=== PATIENT | male | born 1985 | race Two or more races ===

== ENCOUNTER 2020-05-07 15:06 | Emergency (ER) | payer MEDICAID ==
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
[2020-05-07] MEDS ORDERED: SULFAMETH./TRIMETHOPRIM DS 800MG/160MG TABLET PO ONE (16:30)
[2020-05-07] MEDS ORDERED: HALOPERIDOL 5 MG/ML IM PRN (16:30)
[2020-05-07] MEDS ORDERED: LORazepam 2 MG/ML, 1ML IM PRN (16:30)
[2020-05-07] MEDS ORDERED: CEPHALEXIN 500 MG CAPSULE PO ONE (16:30)
[2020-05-07] MEDS ORDERED: OLANZAPINE 10 MG TABLET PO ONE (16:30)
[2020-05-07] MEDS ORDERED: HYDROXYZINE PAMOATE 50MG CAP PO PRN (16:30)
[2020-05-07 16:40] LABS: AMPHETAMINE SCREEN, URINE Positive (Negative); BARBITURATE SCREEN, URINE Negative (Negative); BENZODIAZEPINE SCREEN, URINE Negative (Negative); CANNABINOID SCREEN, URINE Negative (Negative); COCAINE SCREEN, URINE Negative (Negative); METHADONE SCREEN, URINE Negative (Negative); OPIATE SCREEN, URINE Negative (Negative)
[2020-05-07 16:42] LABS: BASOPHILS % (AUTO) 0 % (0-1); EOSINOPHILS % (AUTO) 1 % (1-7); LYMPHOCYTES % (AUTO) 18 % (22-44); MEAN CORPUSCULAR HEMOGLOBIN 30.1 pg (27.5-34.5); MEAN PLATELET VOLUME 8.2 fL (7.4-10.4); MONOCYTES % (AUTO) 7 % (2-9); NEUTROPHILS % (AUTO) 74 % (42-75); PLATELET COUNT 363 x10^3/uL (130-400); RED BLOOD COUNT 4.95 x10^6/uL (4.38-5.82); RED CELL DISTRIBUTION WIDTH 13.7 % (9.4-14.8)
[2020-05-07 16:49] LABS: MD NO
[2020-05-07 16:51] LABS: ANION GAP 6 mmol/L (5-15); CALCIUM 9.6 mg/dL (8.5-10.1); CHLORIDE 105 mmol/L (98-107)
[2020-05-07 16:52] LABS: SALICYLATE LEVEL < 1.7 mg/dL (2.8-20.0)
[2020-05-07 16:53] LABS: ALANINE AMINOTRANSFERASE 50 U/L (12-78); ALKALINE PHOSPHATASE 97 U/L (45-117); BILIRUBIN,TOTAL 0.6 mg/dL (0.2-1.0); CREATININE 0.84 mg/dL (0.7-1.3); TOTAL PROTEIN 7.7 g/dL (6.4-8.2)
[2020-05-07] MEDS ORDERED: CEPHALEXIN 500 MG CAPSULE ONE (17:06)
[2020-05-07] MEDS ORDERED: SULFAMETH./TRIMETHOPRIM DS 800MG/160MG TABLET ONE (17:06)
[2020-05-07] MEDS ORDERED: OLANZAPINE 10 MG TABLET ONE (17:06)
--- NOTE | 2020-05-07 17:14 | NUR ---
REAL ESTATE LAWYER IN TO EVAL PT, PT IS NOW LEGAL HOLD. ADDITIONAL ORDERS RECIEVED. PT MEDICATED PER SEP. MEAL TRAY ORDERED
--- NOTE | 2020-05-07 17:20 | NUR ---
DIET TRAY ORDERED
--- NOTE | 2020-05-07 17:48 | NUR ---
PT MOVED TO RM 1 FOR COMFORT, WARM BLANKET PROVIDED
--- NOTE | 2020-05-07 18:00 | NUR ---
DEBORAH DEMPSEY STARTED, PT REPORTED HE DOS HAVE MORE MEDS HE TAKES AT HOME WILL LOOK AT RECORDES FROM [facility] AND WILL UPDATE
--- NOTE | 2020-05-07 18:13 | NUR ---
report received from jessica byrne.
--- NOTE | 2020-05-07 18:57 | NUR ---
REPORT GIVEN TO GOVIND TRAN.
--- NOTE | 2020-05-07 19:03 | NUR ---
REPORT FROM CHELSEA CONWAY. PT SLEEPING, RR EQUAL AND UNLABORD. SITTER OUTSIDE ROOM. SAFETY CHECKS UPDATED. WILL CONTINUE TO MONITOR, NEEDS MET.
--- NOTE | 2020-05-07 20:23 | NUR ---
NO CHANGE IN ASSESSMENT, PT STILL SLEEPING, RR EQUAL AND UNLABORED. SITTER OUTSIDE OF ROOM IN LINE OF SITE. WILL CONTINUE TO MONITOR.
[2020-05-07] MEDS ORDERED: OLANZAPINE 5 MG TABLET ONE (20:30)
--- NOTE | 2020-05-07 20:38 | NUR ---
WAKES UP WITH VERBAL COMM, ALL NEEDS MET, TOILET/FOOD/MEDS PER MAR. REMAINS CALM, COOPERATIVE. SITTER IN LINE OF SITE. WILL CONTINUE TO MONITOR.
--- NOTE | 2020-05-07 21:47 | NUR ---
PT SLEEPING, RR EQUAL AND UNLABORED. SITTER IN LINE OF SITE, ALL NEEDS MET. WILL CONTINUE TO MONITOR.
--- NOTE | 2020-05-07 22:45 | NUR ---
pt sleeping, rr equal and unlabored. sitter in line of site. will continue to monitor.
--- NOTE | 2020-05-08 00:05 | NUR ---
SLEEPING, RR EQUAL AND UNLABORED. SITTER IN LINE OF SITE. WILL CONTINUE TO MONITOR.
--- NOTE | 2020-05-08 00:40 | NUR ---
TASK RN: PT SLEEPING IN [facility] AT THIS TIME WITH SITTER OUTSIDE OF ROOM FOR DIRECT OBSERVATION OF PT.
--- NOTE | 2020-05-08 02:53 | NUR ---
Snacks provided, water, toilet. Pt is calm, cooperative. Sitter in line of site. Will continue to monitor.
--- NOTE | 2020-05-08 03:38 | NUR ---
OFFERED HOSPITAL BED, PT REFUSED.
--- NOTE | 2020-05-08 04:46 | NUR ---
PT SLEEPING, RR EQUAL AND UNLABORED. SITTER IN LINE OF SITE, WILL CONTINUE TO MONITOR.
--- NOTE | 2020-05-08 06:51 | NUR ---
report to chavez tyler
--- NOTE | 2020-05-08 06:52 | NUR ---
RECEIVED REPORT FROM CHELSEA FAUST. PT. RESTING ON GURNEY RIGHT SIDE LYING WITH EYES CLOSED. REPIRATIONS VISIBLE AND NON-LABORED. ROOM SECURED, SITTER IN LEE.
--- NOTE | 2020-05-08 07:47 | NUR ---
PT. RESTING ON GURNEY IN SUPINE POSITION. RESPIRATIONS VISIBLE AND NON-LABORED. ROOM REMAINS SECURED. SITTER IN LEE.
--- NOTE | 2020-05-08 08:24 | NUR ---
MEAL TRAY PROVIDED TO PT. PT. DENIES OTHER NEEDS AT THIS TIME. PT. IS REFUSING HOSPITAL BED. STATES "NO, I AM GOOD ON THIS BED, I DON'T WANT A DIFFERENT ONE." DENIES OTHER NEEDS AT THIS TIME. NO DISTRESS NOTED. SITTER IN VIEW.
[2020-05-08 08:35] VITALS: BP 144/89
--- NOTE | 2020-05-08 08:35 | NUR ---
PT. ATE 100% OF BREAKFAST TRAY. VS UPDATED. DENIES OTHER NEEDS.
--- NOTE | 2020-05-08 08:53 | NUR ---
REPORT TO CHELSEA ALEXANDER.
[2020-05-08] MEDS ORDERED: OLANZAPINE 5 MG TABLET PO SCH (09:00)
--- NOTE | 2020-05-08 09:07 | NUR ---
REPORT RECEIVED FROM CHELSEA CORDOVA. [facility].
--- NOTE | 2020-05-08 12:38 | NUR ---
PT PROVIDED WITH MEAL TRAY
== END 2020-05-08 13:35 | disposition home or self-care (01) ==
LOC: ED 18:26
DX: S71.112A Laceration without foreign body, left thigh, initial encounter (principal); R45.851 Suicidal ideations; F23 Brief psychotic disorder; X58.XXXA Exposure to other specified factors, initial encounter; Y93.89 Activity, other specified; Y92.89 Other specified places as the place of occurrence of the external cause; Y99.8 Other external cause status
CPT/HCPCS: 36415; 80053; 80307; 85025; 99284

== ENCOUNTER 2020-05-10 19:22 | Emergency (ER) | payer MEDICAID ==
[~2020-05-10] VITALS: Ht 180.3 cm; Wt 90.2 kg
[2020-05-10 19:26] VITALS: BP 166/120
--- NOTE | 2020-05-10 19:59 | NUR ---
ER PROVIDER AT BEDSIDE FOR EVALUATION.
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
[2020-05-10] MEDS ORDERED: NEOSPORIN OINT. PKT 1 PACKET ONE (20:17)
--- NOTE | 2020-05-10 20:26 | NUR ---
Patient given discharge instructions and prescription and they have confirmed that they understand the instructions. Patient ambulatory with steady gait to discharge desk,.
== END 2020-05-10 20:27 | disposition home or self-care (01) ==
LOC: ED 20:03
DX: S71.112A Laceration without foreign body, left thigh, initial encounter (principal); R00.0 Tachycardia, unspecified; X58.XXXA Exposure to other specified factors, initial encounter; Y93.89 Activity, other specified; Y92.89 Other specified places as the place of occurrence of the external cause; Y99.8 Other external cause status
CPT/HCPCS: 93005; 99283

== ENCOUNTER 2020-05-11 14:29 | Emergency (ER) | payer MEDICAID ==
[~2020-05-11] VITALS: Ht 180.3 cm; Wt 86.5 kg
--- NOTE | 2020-05-11 14:46 | NUR ---
PT BROUGHT IN FROM [facility]. PT STATES "I NEED TO LEAVE [place]" STATES "EVERYTIME I GET ON THE [facility] BUS, THEY FOLLOW ME." STATES HE HASN'T TAKEN HIS MEDS (REMERON, ABILIFY, VISTARIL, WELLBUTIN) "SINCE THE LAST TIME I WAS AT THE HOSPITAL"
[2020-05-11] MEDS ORDERED: LORazepam 1MG TABLET PO ONE (15:00)
[2020-05-11] MEDS ORDERED: LORazepam 1MG TABLET ONE (15:10)
--- NOTE | 2020-05-11 15:13 | NUR ---
ATIVAN GIVEN PER EMAR. PT SITTING QUIETLY ON GURNEY.
--- NOTE | 2020-05-11 15:44 | NUR ---
PER DR NICHOLS, SOCIAL WORK CONSULT TO BE ORDERED.
[2020-05-11 15:54] VITALS: BP 168/122
--- NOTE | 2020-05-11 16:14 | NUR ---
PIPPA, WORSTED WINDER, AT BS.
--- NOTE | 2020-05-11 16:20 | NUR ---
PT ENDORSED TO BREAK RN.
== END 2020-05-11 16:55 | disposition home or self-care (01) ==
LOC: ED 14:55
DX: R07.89 Other chest pain (principal); F41.1 Generalized anxiety disorder; R00.0 Tachycardia, unspecified; Z91.19 Patient's noncompliance with other medical treatment and regimen
CPT/HCPCS: 71045; 93005; 99283

== ENCOUNTER 2020-06-01 15:12 | Emergency (ER) | payer MEDICAID ==
[~2020-06-01] VITALS: Ht 177.8 cm; Wt 90.0 kg
[~2020-06-01 15:12] MED LIST: ACET325T26 PO; AMOX1TAB64 PO; DOXY100T23 PO
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
[2020-06-01] MEDS ORDERED: HYDROXYZINE PAMOATE 50MG CAP PO PRN (16:30)
[2020-06-01 16:39] LABS: ANION GAP 4 mmol/L (5-15); CALCIUM 9.4 mg/dL (8.5-10.1); CHLORIDE 108 mmol/L (98-107)
[2020-06-01 16:40] LABS: BASOPHILS % (AUTO) 1 % (0-1); EOSINOPHILS % (AUTO) 0 % (1-7); LYMPHOCYTES % (AUTO) 11 % (22-44); MEAN CORPUSCULAR HEMOGLOBIN 29.3 pg (27.5-34.5); MEAN CORPUSCULAR HGB CONC 32.8 g/dL (33.2-36.2); MEAN PLATELET VOLUME 9.2 fL (7.4-10.4); MONOCYTES % (AUTO) 6 % (2-9); NEUTROPHILS % (AUTO) 83 % (42-75); PLATELET COUNT 329 x10^3/uL (130-400); RED BLOOD COUNT 5.25 x10^6/uL (4.38-5.82); RED CELL DISTRIBUTION WIDTH 13.3 % (9.4-14.8)
[2020-06-01 16:41] LABS: MD NO; SALICYLATE LEVEL < 1.7 mg/dL (2.8-20.0)
[2020-06-01 17:31] LABS: AMPHETAMINE SCREEN, URINE Positive (Negative); BARBITURATE SCREEN, URINE Negative (Negative); BENZODIAZEPINE SCREEN, URINE Negative (Negative); CANNABINOID SCREEN, URINE Negative (Negative); COCAINE SCREEN, URINE Negative (Negative); METHADONE SCREEN, URINE Negative (Negative); OPIATE SCREEN, URINE Negative (Negative)
[2020-06-01] MEDS: BUPROPION SR 150 MG TABLET PO SCH (17:41)
[2020-06-01] MEDS: OLANZAPINE 5 MG TABLET PO SCH (17:42)
--- NOTE | 2020-06-01 17:46 | NUR ---
MEDICATED PATIENT, HE IS RESTING COMFORTABLY, SITTER OUTSIDE THE DOOR AND PATIENT IS VISABLE
[2020-06-01] MEDS ORDERED: SODIUM CHLORIDE 0.9% 1,000ML IVBOLUS ONE (18:00)
[2020-06-01] MEDS ORDERED: SODIUM CHLORIDE FLUSH 10ML SYR IVF ONE (18:00)
[2020-06-01] MEDS ORDERED: LORazepam 2 MG/ML, 1ML IVPush ONE ×2 (18:00→22:30)
--- NOTE | 2020-06-01 18:47 | NUR ---
REPORT TO LUCILLE TRAN, PLAN OF CARE DISCUSSED
--- NOTE | 2020-06-01 18:51 | NUR ---
REPORT FROM CHELSEA SCHRADER. PT CARE ASSUMED.
[2020-06-01] MEDS ORDERED: LORazepam 2 MG/ML, 1ML ONE ×2 (19:08→21:02)
--- NOTE | 2020-06-01 19:22 | NUR ---
STUDENT ATTEMPTED TO START IV. UNSUCCESSFUL. PT REQUESTING BREAK BEFORE RETRYING. PROVIDED WITH WATER AND QUIET ENVIRONMENT. DENIES ANY FURTHER NEEDS. CALL LIGHT IN REACH.
[2020-06-01] MEDS ORDERED: LORazepam 1MG TABLET ONE (19:28)
[2020-06-01] MEDS ORDERED: LORazepam 1MG TABLET PO ONE (19:30)
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
[2020-06-01] MEDS ORDERED: QUETIAPINE 100MG TABLET PO SCH (21:00)
--- NOTE | 2020-06-01 21:34 | NUR ---
IV STARTED. PT TOLERATED WELL. MEDICATED PER MAR. DENIES ANY FURTHER NEEDS AT THIS TIME, CALL LIGHT IN REACH.
--- NOTE | 2020-06-01 22:22 | NUR ---
PT REMAINS TACHYCARDIC, ASYMPTOMATIC. PT INTERACTION IS CALM, APPROPRIATE, EASILY DIRECTABLE. ERP NOTIFIED OF PT STATUS. NEW ORDERS RECEIVED. PT WOULD LIKE TO WAIT BEFORE TAKING ANY FURTHER MEDICATION. REQUESTING TO WAIT UNTIL AROUND MIDNIGHT TO TAKE SEROQUEL AND THIRD DOSE OF ATIVAN. DENIES ANY FURTHER NEEDS. SITTER REMAINS IN LINE OF SIGHT.
[2020-06-02] MEDS ORDERED: QUETIAPINE 100MG TABLET ONE (00:14)
--- NOTE | 2020-06-02 00:30 | NUR ---
PT PROVIDED WITH SNACK AND DRINK. DENIES ANY FURTHER NEEDS. SITTER CONTINUES IN DIRECT LINE OF SIGHT.
--- NOTE | 2020-06-02 01:59 | NUR ---
PT REQUESTING TO LEAVE. EDUCATED ON L2K PROCESS AND PARAMETERS. PT EXPRESSES UNDERSTANDING. RETURNED TO BED, DENIES ANY FURTHER NEEDS OR CONCERNS. SITTER CONTINUES IN DIRECT LINE OF SIGHT.
--- NOTE | 2020-06-02 05:43 | NUR ---
PT SLEEPING SOUNDLY, NAD NOTED. RESPIRATIONS EVEN AND UNLABORED, VITALS WNL AND STABLE. SITTER CONTINUES IN DIRECT LINE OF SIGHT.
--- NOTE | 2020-06-02 06:57 | NUR ---
BEDSIDE REPORT RECEIVED FROM LUCILLE TRAN
--- NOTE | 2020-06-02 07:02 | NUR ---
PT SITTING UPRIGHT ON GURNEY CALMLY, WATCHING TV. VSS, NAD. PT DENIES ANY NEEDS AT THIS TIME. SITTER WITHIN VIEW. WILL CONTINUE TO MONITOR.
[2020-06-02] MEDS ORDERED: LORazepam 2 MG/ML, 1ML ONE (07:36)
[2020-06-02] MEDS ORDERED: SODIUM CHLORIDE 0.9% 1,000ML IVBOLUS ONE (08:00)
[2020-06-02] MEDS ORDERED: LORazepam 2 MG/ML, 1ML IVPush ONE (08:00)
--- NOTE | 2020-06-02 08:00 | NUR ---
PT SITTING UPRIGHT ON GURNEY WATCHING TV. PT NOTED TO BE TACHY ON MONITOR, NO CHANGE FROM PRIOR PER NOC RN. NOTIFIED. PT STATES "I ACTUALLY FEEL HAPPY TODAY". PT DENIES ANY NEEDS AT THIS TIME. SITTER IN VIEW.
--- NOTE | 2020-06-02 08:17 | NUR ---
PT DENIES ANY CHANGE IN SENSE OF SMELL OR TASTE, DENIES FEVERS.
--- NOTE | 2020-06-02 08:17 | NUR ---
JORDY DELEON AT BEDSIDE. POC DISCUSSED, COVID SAMPLE COLLECTED
--- NOTE | 2020-06-02 09:03 | NUR ---
PT SITTING UPRIGHT ON GURNEY WATCHING TV. PT REPORTS "DECREASED ANXIETY AFTER MEDS". PT CALM AND COOPERATIVE WITH STAFF. SITTER IN VIEW AND SAFETY PRECAUTIONS IN PLACE. WILL CONTINUE TO MONITOR.
[2020-06-02] MEDS ORDERED: OLANZAPINE 5 MG TABLET ONE (09:14)
[2020-06-02] MEDS: OLANZAPINE 5 MG TABLET PO SCH (09:16)
[2020-06-02] MEDS: BUPROPION SR 150 MG TABLET PO SCH (09:57)
--- NOTE | 2020-06-02 10:02 | NUR ---
PT SITTING UPRIGHT ON GURNEY WATCHING TV. PT CALM AND COOPERATIVE WITH STAFF. SITTER IN VIEW AND SAFETY PRECAUTIONS IN PLACE. WILL CONTINUE TO MONITOR.
--- NOTE | 2020-06-02 10:40 | NUR ---
WILLIE PSYCH BREAKFAST COOK AT BEDSIDE.
--- NOTE | 2020-06-02 10:48 | NUR ---
REPORT GIVEN TO MIKAYLA TRAN
--- NOTE | 2020-06-02 13:12 | NUR ---
AWAITING DC PACKET.
[2020-06-02 13:15] VITALS: BP 130/70
== END 2020-06-02 13:23 | disposition home or self-care (01) ==
LOC: ED 19:54
DX: R45.851 Suicidal ideations (principal); F32.9 Major depressive disorder, single episode, unspecified; F15.10 Other stimulant abuse, uncomplicated; Z20.828 Contact with and (suspected) exposure to other viral communicable diseases; Z72.9 Problem related to lifestyle, unspecified; F17.290 Nicotine dependence, other tobacco product, uncomplicated; R00.0 Tachycardia, unspecified
CPT/HCPCS: 36415; 80048; 80307; 82040; 85025; 87635; 96361; 96374; 96376; 99285; 99406; J2060; J7030

== ENCOUNTER 2020-06-11 02:20 | Emergency (ER) | payer MEDICAID ==
[~2020-06-11] VITALS: Ht 180.3 cm; Wt 85.0 kg
[2020-06-11 02:22] VITALS: BP 159/95
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
--- NOTE | 2020-06-11 03:44 | NUR ---
DR MARTINES AT BEDSIDE FOR ASSESSMENT AT THIS TIME
--- NOTE | 2020-06-11 04:00 | NUR ---
PT STANDING IN LEE ASKING FOR HELP, WHEN ASKED PT STS "MA'AM CAN I GET SOME FOOD AND WATER PLEASE I AM JUST SO HUNGRY/ THIRSTY." PT PROVIDED WITH SNACKS AND WATER AT THIS TIME. NO OTHER NEEDS/ CONCERNS AT THE CURRENT TIME
--- NOTE | 2020-06-11 04:24 | NUR ---
PT DOES NOT WANT VITALS TAKEN AT THIS TIME
== END 2020-06-11 04:43 | disposition left against medical advice (07) ==
LOC: ED 03:57
DX: L03.116 Cellulitis of left lower limb (principal); F28 Other psychotic disorder not due to a substance or known physiological condition; Z87.891 Personal history of nicotine dependence
CPT/HCPCS: 99283

== ENCOUNTER 2020-06-12 08:39 | Emergency (ER) | payer MEDICAID ==
[~2020-06-12] VITALS: Ht 180.3 cm; Wt 85.2 kg
[2020-06-12 08:41] VITALS: BP 138/83
== END 2020-06-12 09:43 | disposition home or self-care (01) ==
LOC: ED 09:01
DX: J06.9 Acute upper respiratory infection, unspecified (principal); Z20.828 Contact with and (suspected) exposure to other viral communicable diseases; J02.9 Acute pharyngitis, unspecified; R05 Cough; R09.81 Nasal congestion; R50.9 Fever, unspecified; M79.10 Myalgia, unspecified site; Z87.891 Personal history of nicotine dependence
CPT/HCPCS: 71045; 87635; 99284

== ENCOUNTER 2020-06-18 08:42 | Emergency (ER) | payer MEDICAID ==
[~2020-06-18] VITALS: Ht 180.3 cm; Wt 89.3 kg
--- NOTE | 2020-06-18 09:28 | NUR ---
LAB IN ROOM.
[2020-06-18 09:43] LABS: BASOPHILS % (AUTO) 1 % (0-1); EOSINOPHILS % (AUTO) 2 % (1-7); LYMPHOCYTES % (AUTO) 14 % (22-44); MEAN CORPUSCULAR HEMOGLOBIN 30.5 pg (27.5-34.5); MEAN CORPUSCULAR HGB CONC 33.6 g/dL (33.2-36.2); MEAN PLATELET VOLUME 8.4 fL (7.4-10.4); MONOCYTES % (AUTO) 5 % (2-9); NEUTROPHILS % (AUTO) 78 % (42-75); PLATELET COUNT 455 x10^3/uL (130-400); RED CELL DISTRIBUTION WIDTH 13.4 % (9.4-14.8)
[2020-06-18 09:53] LABS: ALBUMIN 3.8 g/dL (3.4-5.0); ANION GAP 6 mmol/L (5-15); CALCIUM 8.9 mg/dL (8.5-10.1); CHLORIDE 107 mmol/L (98-107)
[2020-06-18 09:56] LABS: ALANINE AMINOTRANSFERASE 113 U/L (12-78); ALKALINE PHOSPHATASE 99 U/L (45-117); BILIRUBIN,TOTAL 0.4 mg/dL (0.2-1.0); CREATININE 0.86 mg/dL (0.7-1.3)
[2020-06-18 10:13] LABS: MICROSCOPIC NOT IND
[2020-06-18 10:22] LABS: MD SCAN
--- NOTE | 2020-06-18 10:26 | NUR ---
PT RESTING ON Xenome W/ CALL LIGHT IN REACH, RESP EVEN AND UNLABORED, NADN. ALL TESTS RESULTED. PT IS UP FOR RECHECK AT THIS TIME.
[2020-06-18 11:45] VITALS: BP 136/91
--- NOTE | 2020-06-18 12:25 | NUR ---
Patient given discharge instructions and they have confirmed that they understand the instructions. Patient ambulatory with steady gait.
[2020-06-18] MEDS ORDERED: OMNIPAQUE 350 MG/ML, 100ML BOTTLE ONE (13:22)
== END 2020-06-18 12:27 | disposition home or self-care (01) ==
LOC: ED 08:46
DX: R19.7 Diarrhea, unspecified (principal); R30.0 Dysuria; R10.84 Generalized abdominal pain
CPT/HCPCS: 36415; 74177; 80053; 81003; 83690; 85025; 99285; Q9967

== ENCOUNTER 2020-09-20 14:43 | Emergency (ER) | payer MEDICAID ==
[~2020-09-20] VITALS: Ht 180.3 cm; Wt 95.0 kg
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
--- NOTE | 2020-09-20 15:03 | NUR ---
TASK RN: PT W LABILE AFFECT. ATTEMPTING TO GET OUT OF BED AND TAKE OFF MONITORING. EASILY DISTRACTABLE WITH CONVERSATION. SITTER REQUESTED.
--- NOTE | 2020-09-20 15:33 | NUR ---
REPORT RECEIVED FROM FLORECITA TRAN. PT RESTING ON GURNEY W/ CALL LIGHT IN REACH, SIDE RAILS UPX1 AND SITTER AT BEDSIDE. AWAITING ED EVAL.
--- NOTE | 2020-09-20 16:13 | NUR ---
[facility] IN ROOM, PT CALLED [phone]
--- NOTE | 2020-09-20 16:28 | NUR ---
Rohan hall in ED - 09/20/20 at 1706 by ANIRUDH AT BEDSIDE. PT ANSWERING PHONE TO SPEAK W/ FAMILY.
[2020-09-20] MEDS ORDERED: ZIPRASIDONE 20 MG INJ IM ONE ×3 (16:29→17:30)
[2020-09-20 16:41] LABS: MEAN CORPUSCULAR HEMOGLOBIN 30.1 pg (27.5-34.5); MEAN CORPUSCULAR HGB CONC 33.8 g/dL (33.2-36.2); MEAN PLATELET VOLUME 9.1 fL (7.4-10.4); PLATELET COUNT 305 x10^3/uL (130-400); RED BLOOD COUNT 5.18 x10^6/uL (4.38-5.82); RED CELL DISTRIBUTION WIDTH 13.6 % (9.4-14.8)
[2020-09-20 16:44] LABS: MD YES
[2020-09-20 16:55] LABS: ALANINE AMINOTRANSFERASE 46 U/L (12-78); ALBUMIN 4.3 g/dL (3.4-5.0); ANION GAP 8 mmol/L (5-15); CHLORIDE 107 mmol/L (98-107); SALICYLATE LEVEL 1.8 mg/dL (2.8-20.0)
[2020-09-20 17:00] LABS: ALKALINE PHOSPHATASE 82 U/L (45-117); TOTAL PROTEIN 7.8 g/dL (6.4-8.2); TROPONIN I < 0.015 ng/mL (0.000-0.045)
[2020-09-20 17:05] LABS: BAND#(MANUAL) 0.18 x10^3/uL; BANDS%(MANUAL) 1 % (0-7); LYMPH#(MANUAL) 2.29 x10^3/uL (1-3.4); LYMPHS% (MANUAL) 13 % (22-44); MONOS#(MANUAL) 1.41 x10^3/uL (0.3-2.7); MONOS% (MANUAL) 8 % (2-9); SEG#(MANUAL) 13.73 x10^3/uL (1.8-6.8); SEGS% (MANUAL) 78 % (42-75)
[2020-09-20 17:06] LABS: <PLATELET ESTIMATE> ADEQUATE; <PLT MORPHOLOGY> NORMAL PLT MORPH; <RBC MORPHOLOGY> NORMAL
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
--- NOTE | 2020-09-20 17:14 | NUR ---
PT MEDICATED PER EMAR. RESTING ON GURNEY W/ CALL LIGHT IN REACH. RESP EVEN AND UNLABORED, YASSINE.
--- NOTE | 2020-09-20 17:22 | NUR ---
JORDY DIAZ AT BEDSIDE.
[2020-09-20] MEDS ORDERED: SODIUM CHLORIDE 0.9% 1,000ML IVBOLUS ONE (17:30)
[2020-09-20 18:05] LABS: AMPHETAMINE SCREEN, URINE Positive (Negative); BARBITURATE SCREEN, URINE Negative (Negative); BENZODIAZEPINE SCREEN, URINE Positive (Negative); CANNABINOID SCREEN, URINE Negative (Negative); COCAINE SCREEN, URINE Negative (Negative); METHADONE SCREEN, URINE Negative (Negative); OPIATE SCREEN, URINE Negative (Negative)
--- NOTE | 2020-09-20 18:14 | NUR ---
PT RESTING ON Chromatin W/ CALL LIGHT IN REACH, RESP EVEN AND UNLABORED, YASSINE.
--- NOTE | 2020-09-20 18:49 | NUR ---
REPORT GIVEN TO TOAN TRAN. PT RESTING ON GURNEY W/ CALL LIGHT IN REACH AND SIDE RAILS UPX2. SITTER AT BEDSIDE.
[2020-09-20] MEDS ORDERED: LORazepam 2 MG/ML, 1ML IVPush ONE (19:30)
[2020-09-20] MEDS ORDERED: LORazepam 2 MG/ML, 1ML ONE (19:35)
[2020-09-20] MEDS ORDERED: LIDOCAINE-MPF 1%, 5ML ONE (19:43)
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
--- NOTE | 2020-09-20 20:22 | NUR ---
Food provided per providers request. Pt calm. no changes.
[2020-09-20 22:03] VITALS: BP 118/70
--- NOTE | 2020-09-20 22:04 | NUR ---
Patient/Caregiver given discharge instructions and they have confirmed that they understand the instructions. Patient ambulatory with steady gait. Provider aware of DC HR and ok to DC. Pt given all belongings back and home with all belongings.
== END 2020-09-20 22:06 | disposition home or self-care (01) ==
LOC: ED 17:47
DX: F15.150 Other stimulant abuse with stimulant-induced psychotic disorder with delusions (principal); R00.0 Tachycardia, unspecified; R07.89 Other chest pain; F17.210 Nicotine dependence, cigarettes, uncomplicated; Z72.9 Problem related to lifestyle, unspecified
CPT/HCPCS: 36415; 71045; 80053; 80299; 80307; 80320; 80329; 83880; 84484; 85025; 93005; 96361; 96372; 96374; 99285; J2060; J3486; J7030; G0480